=== PATIENT | male | born 1955 | race Caucasian/White ===

== ENCOUNTER 2018-10-16 07:33 | Inpatient (IN) | payer OTHER ==
[2018-10-16] VITALS (13 sets, daily range): BP systolic 105–146; BP diastolic 62–105; PULSE 49–76; TEMP 96.5–98.5
[~2018-10-16] VITALS: Ht 182.9 cm; Wt 90.4 kg
[2018-10-16] MEDS ORDERED: GLUCOSAMINE 1000 (08:29)
[2018-10-16] MEDS ORDERED: XALATAN EYE DROPS OD (08:30)
[2018-10-16] MEDS ORDERED: MULTI VITAMINS1 TAB PO (08:31)
[2018-10-16] MEDS ORDERED: TOPROL XL 50MG50 MG PO (08:32)
[2018-10-16] MEDS ORDERED: BETIMOL 0.5% OPH5 ML OU (08:33)
[2018-10-16] MEDS ORDERED: COUMADIN 5MG5 MG/TAB PO (08:33)
[2018-10-16 08:35] LABS: POTASSIUM 4.7 mmol/L (3.4-5.0)
[2018-10-16 08:50] LABS: INR 1.6 (0.8-3.0); PROTHROMBIN TIME 18.3 SECONDS (9.7-12.8)
[2018-10-16 09:11] LABS: THYROID STIMULATING HORMONE 1.36 uIU/mL (0.465-4.680)
--- NOTE | 2018-10-16 09:46 | NUR ---
ALL MEDS GIVEN WITH VERBAL ORDER FROM MD. SEE MERGE FOR ADMIN TIMES.
--- NOTE | 2018-10-16 10:25 | NUR ---
PT BACK FROM CARDIOVERSION. VSS AND AX0X3. DENIES DISCOMFORT AT THIS TIME. CURRENTLY RESTING IN BED.
[2018-10-16 11:31] LABS: ALBUMIN 3.9 gm/dL (3.5-5.0); BILIRUBIN,TOTAL 0.9 mg/dL (0.0-1.0); CALCIUM 8.8 mg/dL (8.4-10.2); CREATININE, serum 0.95 mg/dL (0.66-1.25); POTASSIUM 4.8 mmol/L (3.4-5.0); TOTAL PROTEIN 6.9 gm/dL (6.4-8.2)
[2018-10-16 11:40] LABS: BASO # 0.1 (0.0-0.2); BASO % 0.9 % (0.0-2.0); EOS # 0.3 (0.0-0.7); EOS % 4.8 % (0-4.0); GRAN # 3.3 (1.4-6.5); GRAN % 58.3 % (42.2-75.2); HEMATOCRIT 40.1 % (42.0-52.0); HEMOGLOBIN 13.4 g/dl (13.5-18.0); LYMPH # 1.4 (1.2-3.4); LYMPH % 25.6 % (20.0-51.0); MEAN CELL VOLUME 101 fl (80.0-100.0); MEAN CORPUSCULAR HEMOGLOBIN 34 pg (27.0-31.0); MEAN CORPUSCULAR HGB CONC 33 g/dl (33.0-37.0); MEAN PLATELET VOLUME 11.1 fl (7.4-10.4); MONO # 0.6 (0.1-0.6); MONO % 10.2 % (1.7-9.3); PLATELET COUNT 130 K/mm3 (130-400); RED BLOOD COUNT 3.98 M/mm3 (4.20-5.60); REDCELL DISTRIBUTION WIDTH-CV 13.6 % (11.5-14.5)
--- NOTE | 2018-10-16 12:00 | NUR ---
PT VSS AND AX0X3 POST UNSUCCESSFUL CARDIOVERSION. PT RESTING COMFORTABLY IN BED AT THIS TIME. POST EKG PERFORMED. BEING ADMITED FOR MEDICATION. REPORT GIVEN TO RENAE RAMSEY AND PATIENT TRANSFERRED SAFELY TO [facility] FLOOR.
--- NOTE | 2018-10-16 12:27 | NUR ---
Pt arrived to room 306 via with express staff. Pt able to transfer from the to the floor bed without difficulty. Will complete assessment. Pt is sitting up in the bed watching TV at this time and he denies further needs. Call light within reach, will continue to monitor.
--- NOTE | 2018-10-16 18:18 | NUR ---
Since arriving to the floor the pt has been resting quietly. He has remained free of pain. He is sitting up in the bed watching TV at this time and he denies further needs. Call light within reach.
--- NOTE | 2018-10-16 18:49 | NUR ---
Report given to ROXY Guzmán.
[2018-10-17 06:56] LABS: INR 1.5 (0.8-3.0); PROTHROMBIN TIME 17.2 SECONDS (9.7-12.8)
[2018-10-17 07:07] VITALS: BP 143/93; PULSE 74; TEMP 97.7
--- NOTE | 2018-10-17 07:13 | NUR ---
PT HAD UNEVENTFUL NOC. NO C/O PAIN. TELE PAD ON CHEST HAD CAUSED SOME SLIGHT IRRITATION. CHANGED PATCHED OUT AND CHANGED LOCATION. MONITORED AREA. PT HAD LESS C/O ITCHING IN AREA. HAD A TOGIAK OUT LINED AROUND AREA, PT STATED HE WAS SCRATCHING AREA. NO OTHER ISSUES OR CONSERNS VOICED.
--- NOTE | 2018-10-17 08:04 | NUR ---
report received from ROXY Guzmán.
--- NOTE | 2018-10-17 09:04 | NUR ---
Assessed sitting up in chair. Denies having pain and discomfort. Alert and oriented x 4, and able to make needs known. Independent in room. Gait is steady. Ate 100% of breakfast. LS CTA. Respirations even and unlabored. Denies having SOB and dyspnea. No cough noted. Heart with regular rate, irregular rhythm. Capillary refill less than 3 seconds. Non-tentin skin turgor. Voices no needs at this time.
--- NOTE | 2018-10-17 09:57 | NUR ---
Initial visit; Patient thanked Liberal Arts Teacher for looking in on him and offering God's blessings.
--- NOTE | 2018-10-17 10:31 | NUR ---
DAJUAN and SW student met with the patient to discuss discharge plan. The patient lives in [place] with his , Fiona. He reports independence with ADLs and does not use any DME. The patient's PCP is Dr. Adam Perez and he receives his medications at [facility]. He reports no difficulties obtaining his meds. The patient does not have advanced directives, but he was interested in obtaining the form for DPOA-HC. SW provided. The patient plans to return home with his upon discharge. No additional needs at this time.
--- NOTE | 2018-10-17 11:06 | NUR ---
patient sitting up in recliner.a/ox4.denies pain and discomfort at this time.denies chest pain or palpitations.VSS.Pulses present and palpable.associate buyer equal bilat.abd soft,bowel sounds present and audible.no edema noted to BLE.QTc 465.sotalol dose increased to 120mg daily.patient denies any needs at this time.call light in reach
[2018-10-17 11:11] VITALS: BP 131/88; PULSE 85; TEMP 98.3
[2018-10-17 15:35] VITALS: BP 137/78; PULSE 79; TEMP 97.9
--- NOTE | 2018-10-17 18:23 | NUR ---
Voices no needs at this time. Complained of discomfrot to LAC INT site. Flushed without difficulty. Offered to start a new IV and declined at that time. Secured with coban so that area would have decreased irritation as requested. No further complaints at this time. Telemetry continues to be connected properly.
--- NOTE | 2018-10-17 18:30 | NUR ---
This RN agrees with ROXY Bean notes.Patient has had an unevenful day.VSS.denies any needs at this time.will continue to monitor.call light in reach
[2018-10-17 20:22] VITALS: BP 124/72; PULSE 94; TEMP 98.2
[2018-10-18] VITALS: BP 121/64; PULSE 65; TEMP 98
--- NOTE | 2018-10-18 04:50 | NUR ---
PT HAD UNEVENTFUL NOC. NO C/O PAIN. NO C/O N/V/D. VOICES READINESS TO GO HOME. NO OTHER ISSUES OR CONERNS VOICED.
[2018-10-18 07:22] VITALS: BP 138/84; PULSE 111; TEMP 98.6
[2018-10-18 07:28] LABS: INR 1.6 (0.8-3.0); PROTHROMBIN TIME 18.4 SECONDS (9.7-12.8)
--- NOTE | 2018-10-18 07:38 | NUR ---
Assessment complete.patient awake sitting up in recliner eating breakfast,a/ox3.breathing even and unlabored.LSCTA.denies chest pain or palpitations.food safety officer equal.pulses palpable.no concerns voiced at this time.call light in reach
[2018-10-18] MEDS ORDERED: COUMADIN 5MG5 MG/TAB PO (12:56)
[2018-10-18] MEDS ORDERED: BETAPACE 120MG120 MG PO (12:57)
--- NOTE | 2018-10-18 13:15 | NUR ---
patient discharge at this time.all discharge instructions reviewed.telemetry and iv discontinued.medications called to Pharmacy.all belongings taken.all paperwork signed.no concerns voiced at this time.patient escorted out
== END 2018-10-18 14:32 | disposition home or self-care (01) | DRG 310 ==
LOC: COL.CAR 07:33 → MEDICAL 10:55
PROVIDERS: Nurse Practitioner; ADMIT Internal Medicine Cardiovascular Disease
PROC: 5A2204Z Restoration of Cardiac Rhythm, Single (ICD-10-PCS; principal; 2018-10-16)
DX: I48.0 Paroxysmal atrial fibrillation (principal); I10 Essential (primary) hypertension; Z79.01 Long term (current) use of anticoagulants; I08.3 Combined rheumatic disorders of mitral, aortic and tricuspid valves
CPT/HCPCS: J0282; J1650; J2250; J3010; J7030

== ENCOUNTER 2018-10-21 07:29 | Day surgery (SDC) | payer OTHER ==
[~2018-10-21] VITALS: Ht 183 cm; Wt 109.0 kg
[2018-10-21] VITALS (7 sets, daily range): BP systolic 116–140; BP diastolic 72–96; PULSE 52–63; TEMP 98.4
[~2018-10-21 07:29] MED LIST: BETAPACE 120MG120 MG PO; BETIMOL 0.5% OPH5 ML OU; COUMADIN 5MG5 MG/TAB PO; GLUCOSAMINE 1000; MULTI VITAMINS1 TAB PO; TOPROL XL 50MG50 MG PO; XALATAN EYE DROPS OD
[2018-10-21 08:40] LABS: INR 2.3 (0.8-3.0); PROTHROMBIN TIME 25.7 SECONDS (9.7-12.8)
[2018-10-21] MEDS ORDERED: BETAPACE 120MG120 MG PO (08:42)
[2018-10-21 08:45] LABS: POTASSIUM 4.9 mmol/L (3.4-5.0)
--- NOTE | 2018-10-21 09:00 | NUR ---
Pt to procedure.
--- NOTE | 2018-10-21 09:17 | NUR ---
ALL MEDS GIVEN WITH VERBAL ORDER FROM MD. SEE MERGE FOR ADMIN TIMES.
[2018-10-21 09:19] LABS: THYROID STIMULATING HORMONE 1.78 uIU/mL (0.465-4.680)
--- NOTE | 2018-10-21 10:31 | NUR ---
Discharge instructions given to pt.pt verbalizes understanding.INT removed,catheter tip intact.
--- NOTE | 2018-10-21 10:45 | NUR ---
DISCHARGE INSTRUCTIONS GIVEN TO PT.PT VERBALIZES UNDERSTANDING.INT REMOVED,CATHETER TIP INTACT.PT ESCORTED OUT BY THIS NURSE.
== END 2018-10-21 10:53 | disposition home or self-care (01) ==
LOC: COL.CAR 07:29
PROVIDERS: Internal Medicine Cardiovascular Disease
DX: I48.91 Unspecified atrial fibrillation (principal)
CPT/HCPCS: J2250; J3010; J7030

== ENCOUNTER 2018-11-11 13:28 | Inpatient (IN) | payer OTHER ==
[2018-11-14 08:00] VITALS: BP 122/90; PULSE 69; TEMP 98.2
[2018-11-14 12:00] VITALS: BP 139/81; PULSE 58; TEMP 97.5
--- NOTE | 2018-11-14 13:33 | NUR ---
Initial visit; Patient thanked Wardrobe Technician for looking in on him and offering God's blessings.
[2018-11-14 13:54] LABS: INR 2.2 (0.8-3.0); PROTHROMBIN TIME 24.9 SECONDS (9.7-12.8)
[2018-11-14 13:55] LABS: INR 2.2 (0.8-3.0); PROTHROMBIN TIME 25.4 SECONDS (9.7-12.8)
[2018-11-14 15:15] VITALS: BP 127/89; PULSE 83; TEMP 98.3
--- NOTE | 2018-11-14 16:17 | NUR ---
SW met with patient to disucss discharge planning. Patient lives independently at home with his and plans to return there after discharge. Patient's PCP is Dr Perez and he obtains prescriptions from [facility]. Patient does not use any DME or home health services. Patient does not have a DPOA and is not interested in that at this time. SW does not anticipate any discharge needs.
--- NOTE | 2018-11-14 18:58 | NUR ---
Pt has been resting on and off throughout the day. He has remained free of pain. Pt is sitting up in the bed watching TV at this time and he denies further needs. Call light within reach. Report given to ROXY Ramos.
--- NOTE | 2018-11-14 20:30 | NUR ---
Initial shift assessment done- denies pain/SOB,, Tele on- Afib, rate controlled. No requests.
[2018-11-14 21:19] VITALS: BP 130/89; PULSE 77; TEMP 97.6
[2018-11-15 01:32] VITALS: BP 117/81; PULSE 84
--- NOTE | 2018-11-15 06:13 | NUR ---
Quiet night-- was awake around 0330,,states he gets up early at home. Remains in a fib, rate up to 130-140,s when pt up walking around in his room--back to chair,rate down to 70,s
--- NOTE | 2018-11-15 08:30 | NUR ---
Initial assessment completed. No pain or needs this morning. The call light is in place. Telemetry on and functioning well.
[2018-11-15 09:07] LABS: HEMATOCRIT 47.4 % (42.0-52.0); HEMOGLOBIN 15.9 g/dl (13.5-18.0); MEAN CELL VOLUME 99 fl (80.0-100.0); MEAN CORPUSCULAR HEMOGLOBIN 33 pg (27.0-31.0); MEAN CORPUSCULAR HGB CONC 34 g/dl (33.0-37.0); MEAN PLATELET VOLUME 11.4 fl (7.4-10.4); PLATELET COUNT 156 K/mm3 (130-400); RED BLOOD COUNT 4.77 M/mm3 (4.20-5.60); REDCELL DISTRIBUTION WIDTH-CV 13.5 % (11.5-14.5)
[2018-11-15 09:10] LABS: INR 2.1 (0.8-3.0); PROTHROMBIN TIME 24.3 SECONDS (9.7-12.8)
[2018-11-15 09:16] LABS: CALCIUM 9.4 mg/dL (8.4-10.2); CREATININE, serum 0.97 mg/dL (0.66-1.25); POTASSIUM 4.7 mmol/L (3.4-5.0)
[2018-11-15 09:24] VITALS: BP 127/84; PULSE 75; TEMP 97.4
[2018-11-15 13:00] VITALS: BP 140/88; PULSE 74; TEMP 97.2
[2018-11-15 16:51] VITALS: BP 148/88; PULSE 54; TEMP 98
--- NOTE | 2018-11-15 19:36 | NUR ---
No change throughout the shift. The patient remains in Afib RVR at times in the 130s. No chest pain or palpitations present throughout the day. The call light is in place. Report given to ROXY Ramos to resume care.
[2018-11-15 19:54] VITALS: BP 133/94; PULSE 68; TEMP 97.6
--- NOTE | 2018-11-15 20:30 | NUR ---
Initial shift assessment done- denies pain/SOB, sitting up in chair watching TV- Tele on, afib rate controlled 60-70,s. No requests.
[2018-11-16] VITALS (7 sets, daily range): BP systolic 109–162; BP diastolic 72–97; PULSE 56–107; TEMP 97.2–97.7
--- NOTE | 2018-11-16 05:15 | NUR ---
Quiet night-no requests, Tele -afib/flutter rate 60,s--does go up to 130-140,s when pt up and walking
[2018-11-16 06:26] LABS: HEMOGLOBIN 15.7 g/dl (13.5-18.0); MEAN CELL VOLUME 99 fl (80.0-100.0); MEAN CORPUSCULAR HEMOGLOBIN 33 pg (27.0-31.0); MEAN CORPUSCULAR HGB CONC 33 g/dl (33.0-37.0); MEAN PLATELET VOLUME 11.2 fl (7.4-10.4); PLATELET COUNT 158 K/mm3 (130-400); RED BLOOD COUNT 4.73 M/mm3 (4.20-5.60); REDCELL DISTRIBUTION WIDTH-CV 13.3 % (11.5-14.5)
[2018-11-16 06:33] LABS: INR 2.4 (0.8-3.0); PROTHROMBIN TIME 26.9 SECONDS (9.7-12.8)
[2018-11-16 06:37] LABS: CALCIUM 9.3 mg/dL (8.4-10.2); CREATININE, serum 1.04 mg/dL (0.66-1.25); POTASSIUM 4.7 mmol/L (3.4-5.0)
--- NOTE | 2018-11-16 08:24 | NUR ---
Sitting up in the chair at this time. No pain or needs reported. The call light and telemetry are in place.
--- NOTE | 2018-11-16 11:42 | NUR ---
Heart rate lower this morning, currently 68 bpm. No pain or needs reported. The call light is in reach.
[2018-11-16 13:40] LABS: BASO % 0.5 % (0.0-2.0); EOS # 0.3 (0.0-0.7); GRAN # 3.2 (1.4-6.5); GRAN % 54.8 % (42.2-75.2); HEMATOCRIT 48.3 % (42.0-52.0); HEMOGLOBIN 16.2 g/dl (13.5-18.0); LYMPH # 1.7 (1.2-3.4); LYMPH % 28.6 % (20.0-51.0); MEAN CELL VOLUME 99 fl (80.0-100.0); MEAN CORPUSCULAR HEMOGLOBIN 33 pg (27.0-31.0); MEAN CORPUSCULAR HGB CONC 34 g/dl (33.0-37.0); MEAN PLATELET VOLUME 10.7 fl (7.4-10.4); MONO # 0.6 (0.1-0.6); MONO % 10.9 % (1.7-9.3); PLATELET COUNT 159 K/mm3 (130-400); RED BLOOD COUNT 4.87 M/mm3 (4.20-5.60); REDCELL DISTRIBUTION WIDTH-CV 13.5 % (11.5-14.5)
[2018-11-16 13:48] LABS: CALCIUM 9.3 mg/dL (8.4-10.2); CREATININE, serum 1.09 mg/dL (0.66-1.25); POTASSIUM 4.7 mmol/L (3.4-5.0)
--- NOTE | 2018-11-16 19:48 | NUR ---
Plan for GINNY/cardioversion tomorrow. Consent obtained. Report given to ROXY Santo to resume care.
--- NOTE | 2018-11-16 20:40 | NUR ---
Shift assessment complete. Pt resting in bed, awake, a&o, cooperative c cares. Pt denies pain or other c/o. INT patent. Tele in place. Pt denies needs. Call light in reach, will monitor.
[2018-11-17 04:02] VITALS: PULSE 70
[2018-11-17 06:06] LABS: HEMATOCRIT 48.4 % (42.0-52.0); HEMOGLOBIN 16.7 g/dl (13.5-18.0); MEAN CELL VOLUME 100 fl (80.0-100.0); MEAN CORPUSCULAR HEMOGLOBIN 35 pg (27.0-31.0); MEAN CORPUSCULAR HGB CONC 35 g/dl (33.0-37.0); MEAN PLATELET VOLUME 11.1 fl (7.4-10.4); PLATELET COUNT 154 K/mm3 (130-400); RED BLOOD COUNT 4.84 M/mm3 (4.20-5.60); REDCELL DISTRIBUTION WIDTH-CV 13.5 % (11.5-14.5)
[2018-11-17 06:28] LABS: CALCIUM 9.1 mg/dL (8.4-10.2); CREATININE, serum 1.09 mg/dL (0.66-1.25); POTASSIUM 4.5 mmol/L (3.4-5.0)
[2018-11-17 06:31] LABS: INR 2.6 (0.8-3.0)
[2018-11-17 07:06] VITALS: BP 140/79; PULSE 65; TEMP 97.5
--- NOTE | 2018-11-17 08:07 | NUR ---
Pt sitting in chair, alert and oriented. Pt denies pain, breathing even and unlabored. Completed morning assesment. Pt denies any needs at this time.
[2018-11-17 12:54] VITALS: BP 148/82; PULSE 78
--- NOTE | 2018-11-17 12:56 | NUR ---
ALL SEDATION MEDICATIONS GIVEN DURING PROCEDURE WITH VERBAL ORDER FROM MD BARCENAS. SEE MERGE REPORT FOR RASS/MODERATE SEDATION ASSESSMENTS DURING AND AFTER PROCEDURE. SEE MERGE FOR MEDICATION ADMIN TIMES.
[2018-11-17] MEDS ORDERED: PACERONE400 MG PO (13:02)
--- NOTE | 2018-11-17 13:05 | NUR ---
Pt in room, eager to be discharged. Removed INT to LW, catheter tip intact, no redness or swelling noted. Tele d/c. Discharge paperwork explained, all questions answered and paperwork signed by pt. Pt escorted to elevator.
== END 2018-11-17 13:05 | disposition home or self-care (01) | DRG 310 ==
LOC: MEDICAL 11-13 08:30
PROVIDERS: Internal Medicine Cardiovascular Disease; ADMIT Internal Medicine Cardiovascular Disease
PROC: 5A2204Z Restoration of Cardiac Rhythm, Single (ICD-10-PCS; principal; 2018-11-17)
DX: I48.1 Persistent atrial fibrillation (principal); I10 Essential (primary) hypertension; I08.0 Rheumatic disorders of both mitral and aortic valves
CPT/HCPCS: J2250; J3010